=== PATIENT | male | born 1940 | race Two or more races ===

== ENCOUNTER 2020-03-18 12:26 | Emergency (ER) | payer OTHER, MEDICAID, SELFPAY ==
--- NOTE | 2020-03-18 12:38 | ED.RECABL ---
HPI - Recheck/Abnormal Lab/Rx General Chief Complaint: Recheck/Abnormal Lab/Rx Stated Complaint: ABNORMAL LABS Time Seen by Provider: 03/18/20 12:37 Source: patient and EMS Mode of arrival: EMS Limitations: other (poor historian) History of Present Illness MD complaint: abnormal lab (?dehydration) Initial visit (ago): day(s) (called by PCP today states this week he hasn't been feeling well) Initial visit for: other (lab check) Returns today for: called because of abnormal lab/test Description of abnormal result: patient doesn't know Symptoms since prior visit: no new symptoms Context: called for abnormal lab result Associated symptoms: other (states he feels shaky admits to not drinking for a few days, had 3 episodes of non bloody diarrhea this week) Related Data Home Medications Medication Instructions Recorded Confirmed Artificial Tears 03/18/20 Basaglar KwikPen U-100 Insulin 03/18/20 Potassium Phosphates 03/18/20 Senna Plus 03/18/20 Vitamin D3 03/18/20 03/18/20 amlodipine 03/18/20 atorvastatin 03/18/20 folic acid 03/18/20 furosemide 03/18/20 gabapentin 03/18/20 magnesium oxide 03/18/20 multivitamin 03/18/20 terazosin 03/18/20 tramadol 03/18/20 Previous Rx's Medication Instructions Recorded magnesium oxide 400 mg PO DAILY 10 Days #10 tab 03/18/20 Allergies Allergy/AdvReac Type Severity Reaction Status Date / Time No Known Allergies Allergy Mild NONE Unverified 12/27/19 15:54 Review of Systems Review of Systems: Constitutional : No Weight loss, No Fever, No Chills, No Fatigue, No Malaise, feels shaky ENT/Mouth : No sore throat, No Rhinorrhea Eyes: No Eye Pain, No Swelling, No Redness Cardiovascular : No Chest Pain, No SOB, No Dyspnea on Exertion, No Orthopnea, No Edema, No Palpitations Respiratory : No Cough, No Sputum, No Wheezing Gastrointestinal : No Nausea, No Vomiting, pos Diarrhea, No Constipation, No abdominal Pain, No Hematochezia, No Melena Genitourinary : No Dysuria, No Urinary Frequency, No Hematuria, Musculoskeletal : No joint pain, No Myalgias, No Joint Swelling Skin : No Skin Lesions, No rash Neuro : No Weakness, No Numbness, No Dizziness, No Headache Psych : pos Anxiety/Panic, No Depression All other systems reviewed and are negative [facility] Past Medical History Attestation statement: The following information was validated with the patient. Medical History BPH associated with nocturia CHF (congestive heart failure) CKD (chronic kidney disease) COPD (chronic obstructive pulmonary disease) Dementia Diabetes mellitus EtOH dependence Hyperlipidemia Hyperparathyroidism Rheumatoid arthritis Social History Social History (Updated 03/18/20 @ 12:58 by Kami Mata DO) Alcohol intake: current Alcohol intake frequency: 3 or more drinks per day Smoking Status: Former smoker Use of substances other than those prescribed or required for medical reasons: No Advance Directives: No Advance Directives Information Provided: No Physical Exam Vital Signs: Vital Signs: Last Vital Signs Temp 98.6 F 03/18/20 12:39 Pulse 70 03/18/20 14:01 Resp 20 03/18/20 14:01 BP 143/62 H 03/18/20 14:01 Pulse Ox 97 03/18/20 14:01 Body Mass Index 29.0 Appearance: Alert. Oriented X3. No acute distress. Anxious Eyes: Pupils equal, round and reactive to light. ENT: Pharynx mildy dry MM Neck: Normal inspection. Neck supple. CVS: Normal heart rate and rhythm. Pulses normal. Respiratory: No respiratory distress. Breath sounds normal. Abdomen: Soft and non-tender. Skin: Skin warm and dry. Normal skin color. Normal skin turgor. Extremities: No lower extremity edema. No calf ttp Neuro: Oriented X 3. No motor deficit. No sensory deficit. Course Course Course Narrative: patient with no complaints has no dehydration, kidney function better than baseline, LFTS support ETOH has no abdominal pain, once Mag repleted will repeat EKG repeat EKG now unchanged from baseline, VS stable feels well to go home MDM - Recheck/Abnormal Lab/Rx MDM Narrative Medical decision making narrative: 80 yo male on lasix and recent stop of ETOH at this time will need labs told he was hydrated, give PO ativan for anxiety, IVF, EKG, has no pain at htis time, abdomen is benign, dispo per results and findings. Lab Data Result diagrams: 03/18/20 13:00 03/18/20 13:00 Labs: Lab Results 03/18/20 03/18/20 03/18/20 Range/Units 13:00 13:00 13:00 WBC 5.0 (4.8-10.8) X10*3/uL RBC 4.51 L (4.60-5.80) X10*6/uL Hgb 13.5 L (14.0-18.0) g/dl Hct 40.6 L (42-52) % MCV 90.0 (80-98) fL MCH 29.9 (27.0-33.0) pg MCHC 33.3 (31.0-36.0) g/dl RDW 14.6 (11.0-16.0) % Plt Count 179 (160-400) X10*3/uL MPV 9.6 (9.4-12.4) fL Immature Gran % (Auto) 0.2 (0.0-0.4) % Neut % (Auto) 55.7 (45-73) % Lymph % (Auto) 30.5 (20-40) % Phelps % (Auto) 11.2 H (2-11) % Eos % (Auto) 1.8 (0-4) % Baso % (Auto) 0.6 (0-2) % Lymph # (Auto) 1.5 (1.2-4.9) X10*3/uL Phelps # (Auto) 0.6 (0.1-1.2) X10*3/uL Eos # (Auto) 0.1 (0.0-0.4) X10*3/uL Baso # (Auto) 0.0 (0.0-0.2) X10*3/uL Abs Immat Gran (auto) 0.01 (0.00-0.03) X10*3/uL Absolute Neuts (auto) 2.8 (2.0-8.3) X10*3/uL Absolute Nucleated RBC 0.040 H (0.0-0.012) X10*3/uL Nucleated RBC % (auto) 0.8 H (0.0-0.2) /100WBC PT 12.6 (10.8-13.0) SEC INR 1.1 (0.9-1.1) APTT 33.9 (24.1-38.0) SEC VBG pH (7.32-7.43) VBG pCO2 mmhg VBG pO2 mmhg VBG HCO3 mmol/L VBG O2 Saturation % VBG Base Excess mmol/L Sodium 134 L (135-145) mmol/L Potassium 3.7 (3.3-5.1) mmol/l Chloride 97 (96-108) mmol/L Carbon Dioxide 28 (22-29) mmol/L Anion Gap 13 (12-20) BUN 12 (9-16) mg/dL Creatinine 1.33 (0.5-1.4) mg/dL Estim Creat Clear Calc 43.7 Estimated GFR 52 Random Glucose 198 H (60-115) mg/dL Calcium 8.5 (8.4-10.2) mg/dL Magnesium 1.3 L* (1.6-2.6) mg/dL Total Bilirubin 1.4 H (0.0-1.0) mg/dL Direct Bilirubin 0.7 H (0.0-0.5) mg/dL AST 129 H (5-37) U/L ALT 81 H (0-40) U/L Alkaline Phosphatase 97 (39-117) U/L Total Protein 6.7 (6.5-8.0) g/dL Albumin 3.3 L (3.5-5.0) g/dL Lipase 80 H (8-78) U/L Ethyl Alcohol mg/dL 03/18/20 03/18/20 Range/Units 13:00 13:17 WBC (4.8-10.8) X10*3/uL RBC (4.60-5.80) X10*6/uL Hgb (14.0-18.0) g/dl Hct (42-52) % MCV (80-98) fL MCH (27.0-33.0) pg MCHC (31.0-36.0) g/dl RDW (11.0-16.0) % Plt Count (160-400) X10*3/uL MPV (9.4-12.4) fL Immature Gran % (Auto) (0.0-0.4) % Neut % (Auto) (45-73) % Lymph % (Auto) (20-40) % Phelps % (Auto) (2-11) % Eos % (Auto) (0-4) % Baso % (Auto) (0-2) % Lymph # (Auto) (1.2-4.9) X10*3/uL Phelps # (Auto) (0.1-1.2) X10*3/uL Eos # (Auto) (0.0-0.4) X10*3/uL Baso # (Auto) (0.0-0.2) X10*3/uL Abs Immat Gran (auto) (0.00-0.03) X10*3/uL Absolute Neuts (auto) (2.0-8.3) X10*3/uL Absolute Nucleated RBC (0.0-0.012) X10*3/uL Nucleated RBC % (auto) (0.0-0.2) /100WBC PT (10.8-13.0) SEC INR (0.9-1.1) APTT (24.1-38.0) SEC VBG pH 7.41 (7.32-7.43) VBG pCO2 43 mmhg VBG pO2 46 mmhg VBG HCO3 27 mmol/L VBG O2 Saturation 78.6 % VBG Base Excess 2.0 mmol/L Sodium (135-145) mmol/L Potassium (3.3-5.1) mmol/l Chloride (96-108) mmol/L Carbon Dioxide (22-29) mmol/L Anion Gap (12-20) BUN (9-16) mg/dL Creatinine (0.5-1.4) mg/dL Estim Creat Clear Calc Estimated GFR Random Glucose (60-115) mg/dL Calcium (8.4-10.2) mg/dL Magnesium (1.6-2.6) mg/dL Total Bilirubin (0.0-1.0) mg/dL Direct Bilirubin (0.0-0.5) mg/dL AST (5-37) U/L ALT (0-40) U/L Alkaline Phosphatase (39-117) U/L Total Protein (6.5-8.0) g/dL Albumin (3.5-5.0) g/dL Lipase (8-78) U/L Ethyl Alcohol < 10 mg/dL ECG Data Attestation: I personally reviewed and interpreted this ECG as follows: ECG interpretation date: 03/18/20 ECG interpretation time: 13:54 Interpretation: Rate: 79 Rhythm: irregular narrow Holland: normal no consistent p waves seen Normal QRS complex. ST T wave : nonspecific no LONNIE qTC: normal prior studies: changed from prior, artifact present The study has been interpreted contemporaneously by me. . Rate: 65 Rhythm: NSR with 2nd degree type 1 AVB Holland: normal Normal P waves. Normal JANETT. Normal QRS complex. ST T wave : no LONNIE qTC: normal prior studies: no acute ischemia The study has been interpreted contemporaneously by me. . Discharge Plan Discharge Clinical Impression: Hypomagnesemia, Abnormal LFTs Patient Disposition: Home, Self-Care Instructions: Hypomagnesemia (ED) Additional Instructions: return to ED for any worsening symptoms or concerns Prescriptions: New magnesium oxide 400 mg magnesium tablet 400 mg PO DAILY 10 Days Qty: 10 RF: 0 No Action Artificial Tears RF: 0 Basaglar KwikPen U-100 Insulin RF: 0 Potassium Phosphates RF: 0 Senna Plus RF: 0 Vitamin D3 RF: 0 amlodipine RF: 0 atorvastatin RF: 0 folic acid RF: 0 furosemide RF: 0 gabapentin RF: 0 magnesium oxide RF: 0 multivitamin RF: 0 terazosin RF: 0 tramadol RF: 0 Referrals: Physician,Unknown [Primary Care Provider] - 2 days (PCP in 2 days)
[2020-03-18 12:39] VITALS: BP 145/84; PULSE 94; RESP 20; TEMP 37; O2SAT 99; BMI 29.0
--- NOTE | 2020-03-18 12:39 | ECG_ITS ---
Test Reason : DIZZY Blood Pressure : / mmHG Vent. Rate : 079 BPM Atrial Rate : 092 BPM P-R Int : 000 ms QRS Dur : 098 ms QT Int : 386 ms P-R-T Axes : 000 055 017 degrees QTc Int : 442 ms Undetermined rhythm Abnormal ECG When compared with ECG of 07-OCT-2018 18:54, possibly rhythm change Vent. rate has increased BY 37 BPM Referred By: Kami Mata Electronically Signed By:OWEN HARRIS
[2020-03-18] MEDS: LORazepam 1 MG TABLET PO (13:02)
[2020-03-18] MEDS: 0.9 % Sodium Chloride 1,000 ML 999 ML IVCONT (13:02)
[2020-03-18 13:11] LABS: MANUAL DIFF FLAG NO
[2020-03-18 13:18] LABS: Basophils Percent Auto 0.6 % (0-2); Eosinophils Absolute Auto 0.1 X10*3/uL (0.0-0.4); Eosinophils Percent Auto 1.8 % (0-4); Hematocrit 40.6 % (42-52); Hemoglobin 13.5 g/dl (14.0-18.0); INTERNATIONAL NORM RATIO 1.1 (0.9-1.1); Imm Gran Abs Auto 0.01 X10*3/uL (0.00-0.03); Imm Gran Pct Auto 0.2 % (0.0-0.4); Lymphocytes Absolute Auto 1.5 X10*3/uL (1.2-4.9); Lymphocytes Percent Auto 30.5 % (20-40); Mean Corpuscular HGB Conc 33.3 g/dl (31.0-36.0); Mean Corpuscular Hemoglobin 29.9 pg (27.0-33.0); Mean Platelet Volume 9.6 fL (9.4-12.4); Monocytes Absolute Auto 0.6 X10*3/uL (0.1-1.2); Monocytes Percent Auto 11.2 % (2-11); NRBC Pct Auto 0.8 /100WBC (0.0-0.2); Neutrophils Absolute Auto 2.8 X10*3/uL (2.0-8.3); Neutrophils Percent Auto 55.7 % (45-73); Platelet Count 179 X10*3/uL (160-400); Prothrombin Time 12.6 SEC (10.8-13.0); Red Blood Count 4.51 X10*6/uL (4.60-5.80); Red Cell Distribution Width 14.6 % (11.0-16.0)
[2020-03-18 13:21] LABS: Partial Thromboplastin Time 33.9 SEC (24.1-38.0)
[2020-03-18 13:35] LABS: HCO3 VBG 27 mmol/L; Oxygen Saturation VBG 78.6 %; PCO2 VBG 43 mmhg; PO2 VBG 46 mmhg; pH VBG 7.41 (7.32-7.43)
[2020-03-18 13:40] LABS: Ethanol < 10 mg/dL
[2020-03-18 13:52] LABS: Alanine Aminotransferase 81 U/L (0-40); Albumin Level 3.3 g/dL (3.5-5.0); Alkaline Phosphatase 97 U/L (39-117); Anion Gap 13 (12-20); Aspartate Amino Transferase 129 U/L (5-37); Bilirubin Direct 0.7 mg/dL (0.0-0.5); Bilirubin Total 1.4 mg/dL (0.0-1.0); Blood Urea Nitrogen 12 mg/dL (9-16); Calcium 8.5 mg/dL (8.4-10.2); Carbon Dioxide 28 mmol/L (22-29); Chloride 97 mmol/L (96-108); Creatinine Clr Calc Pharmacy 43.7; Estimated Glomerular Filt Rate 52; Glucose Random 198 mg/dL (60-115); Magnesium 1.3 mg/dL (1.6-2.6); Potassium 3.7 mmol/l (3.3-5.1); Sodium 134 mmol/L (135-145); Total Protein 6.7 g/dL (6.5-8.0)
[2020-03-18] MEDS: Magnesium Sulfate/H2O 2 GM/50 ML PIGGYBACK IV (14:00)
[2020-03-18 14:01] VITALS: BP 143/62; PULSE 70; RESP 20; O2SAT 97
[2020-03-18 14:02] LABS: Lipase 80 U/L (8-78)
== END 2020-03-18 16:42 | disposition home or self-care (01) ==
PROVIDERS: Emergency Provider Emergency Medicine
DX: E83.42 Hypomagnesemia (principal); R79.89 Other specified abnormal findings of blood chemistry; Z79.899 Other long term (current) drug therapy; Z87.891 Personal history of nicotine dependence; R94.5 Abnormal results of liver function studies
CPT/HCPCS: 36415; 80048; 80076; 80320; 82803; 83690; 83735; 85025; 85610; 85730; 93005; 96361; 96365; 99284; J3475

== ENCOUNTER 2021-09-14 04:33 | Emergency (ER) | payer OTHER, MEDICAID, SELFPAY ==
[2021-09-14 04:40] VITALS: BP 143/68; PULSE 76; RESP 18; TEMP 36.8; O2SAT 100; BMI 30.4
[2021-09-14 06:09] VITALS: BP 141/72; PULSE 75; RESP 20; O2SAT 100
--- NOTE | 2021-09-14 06:13 | ECG_ITS ---
Test Reason : FALL Blood Pressure : / mmHG Vent. Rate : 085 BPM Atrial Rate : 085 BPM P-R Int : 376 ms QRS Dur : 082 ms QT Int : 376 ms P-R-T Axes : 000 051 038 degrees QTc Int : 447 ms Sinus rhythm with 1st degree A-V block Abnormal ECG When compared with ECG of 18-MAR-2020 13:42, Previous ECG has undetermined rhythm, needs review Referred By: Farnaz Burden Electronically Signed By:OWEN HARRIS
--- NOTE | 2021-09-14 06:19 | ED.FALL ---
HPI - Fall General Chief Complaint: Fall Stated Complaint: FALL Time Seen by Provider: 09/14/21 06:13 History of Present Illness HPI Narrative: Patient is an 81-year-old male presented today with having fallen. Patient claims he tripped fell. Not on blood thinners. No nausea no vomiting no head injury. Denies any new medication. No chest pain or shortness of breath. No abdominal pain. Moving all extremity for EMS. No bloody stool. complaint: fall Related Data Home Medications Medication Instructions Recorded Confirmed Artificial Tears 03/18/20 Basaglar KwikPen U-100 Insulin 03/18/20 Potassium Phosphates 03/18/20 Senna Plus 03/18/20 Vitamin D3 03/18/20 03/18/20 amlodipine 03/18/20 atorvastatin 03/18/20 folic acid 03/18/20 furosemide 03/18/20 gabapentin 03/18/20 magnesium oxide 03/18/20 multivitamin 03/18/20 terazosin 03/18/20 tramadol 03/18/20 Previous Rx's Medication Instructions Recorded magnesium oxide 400 mg PO DAILY 10 Days #10 tab 03/18/20 Allergies Allergy/AdvReac Type Severity Reaction Status Date / Time No Known Allergies Allergy Mild NONE Unverified 12/27/19 15:54 Review of Systems Review of Systems: No fever no chills no cough no congestion No chest pain or diaphoresis Yes all other systems are reviewed and are negative [facility] Past Medical History Attestation statement: The following information was validated with the patient. Medical History BPH associated with nocturia CHF (congestive heart failure) CKD (chronic kidney disease) COPD (chronic obstructive pulmonary disease) Dementia Diabetes mellitus EtOH dependence Hyperlipidemia Hyperparathyroidism Rheumatoid arthritis Social History Social History Alcohol intake: current Alcohol intake frequency: 3 or more drinks per day Advance Directives: Yes Advance Directives Information Provided: Yes Advance Directives on File: Yes Advance Directives Date on File: 03/18/20 Physical Exam Vital Signs: Vital Signs: Last Vital Signs Temp 98.2 F 09/14/21 04:40 Pulse 87 09/14/21 06:35 Resp 20 09/14/21 06:09 BP 156/66 H 09/14/21 06:35 Pulse Ox 100 09/14/21 06:09 BMI result Body Mass Index 30.4 Appearance: Alert. Oriented X3. No acute distress no head injury noted. No hematoma noted. Eyes: Pupils equal, round and reactive to light. ENT: Pharynx normal. Neck: Normal inspection. Neck supple. No lymph nodes noted. No crepitus. No posterior C-spine tenderness elicited. CVS: Normal heart rate and rhythm. Pulses normal. Normal S1 and S2. Respiratory: No respiratory distress. Breath sounds normal. No Wheezing. No rales.No clavicular tenderness no chest wall tenderness. No crepitus. Abdomen: Soft and nontender. No rigidity. No distention. good BS x4 Skin: Skin warm and dry. Normal skin color. Normal skin turgor. Extremities: No lower extremity edema. Neurovascular intact to all extremities. No Lacerations. No Rash Neuro: Oriented X 3. No motor deficit. No sensory deficit. Moving all extermities. No slurred speech MDM - Fall MDM Narrative Medical decision making narrative: Patient's EKG showed a sinus pattern heart rate is 85 GA is prolonged. Patient has first-degree AV block. QRS QT within normal limits is no acute ST segment elevation. Patient is not orthostatic. Labs are pending. Ambulated well in the emergency department. Will discharge patient home if electrolytes are normal Medical Records Attestation: I reviewed the patient's medical records. Lab Data Attestation: I reviewed the patient's lab results. Discharge Plan Discharge Clinical Impression: Fall Patient Disposition: Still a Patient Instructions: Fall Prevention for Older Adults (ED), Head Injury (ED) Prescriptions: No Action Artificial Tears 0RF Basaglar KwikPen U-100 Insulin 0RF Potassium Phosphates 0RF Senna Plus 0RF Vitamin D3 0RF amlodipine 0RF atorvastatin 0RF folic acid 0RF furosemide 0RF gabapentin 0RF magnesium oxide 0RF multivitamin 0RF terazosin 0RF tramadol 0RF magnesium oxide 400 mg magnesium tablet 400 mg PO DAILY 10 Days Qty: 10 0RF Referrals: Physician,Unknown J [Primary Care Provider] - (Follow-up with your doctor on an outpatient basis)
[2021-09-14 06:34] VITALS: BP 145/76; PULSE 77
[2021-09-14 06:35] VITALS: BP 149/66; BP 156/66; PULSE 86; PULSE 87
[2021-09-14 06:46] LABS: Glucose, Whole Blood 188 mg/dL (60-115)
[2021-09-14 06:47] LABS: Basophils Absolute Auto 0.1 X10*3/uL (0.0-0.2); Basophils Percent Auto 0.6 % (0-2); Eosinophils Absolute Auto 0.3 X10*3/uL (0.0-0.4); Eosinophils Percent Auto 3.5 % (0-4); Hematocrit 40.1 % (42.0-52.0); Hemoglobin 13.3 g/dl (14.0-18.0); Imm Gran Abs Auto 0.02 X10*3/uL (0.00-0.03); Imm Gran Pct Auto 0.2 % (0.0-0.4); Lymphocytes Percent Auto 20.3 % (20-40); MANUAL DIFF FLAG NO; Mean Corpuscular HGB Conc 33.2 g/dl (31.0-36.0); Mean Corpuscular Hemoglobin 30.3 pg (27.0-33.0); Mean Corpuscular Volume 91.3 fL (80.0-98.0); Mean Platelet Volume 9.4 fL (9.4-12.4); Monocytes Absolute Auto 0.9 X10*3/uL (0.1-1.2); Monocytes Percent Auto 8.7 % (2-11); Neutrophils Absolute Auto 6.5 x10*3/uL (2.0-8.3); Neutrophils Percent Auto 66.7 % (45-73); Platelet Count 356 X10*3/uL (160-400); Red Blood Count 4.39 X10*6/uL (4.60-5.80); Red Cell Distribution Width 13.7 % (11.0-16.0); White Blood Count 9.7 X10*3/uL (4.8-10.8)
[2021-09-14 07:12] VITALS: BP 151/76; PULSE 80; RESP 16; O2SAT 100
[2021-09-14 07:48] LABS: Anion Gap 14 (12-20); Blood Urea Nitrogen 13 mg/dL (9-16); Carbon Dioxide 27 mmol/L (22-29); Chloride 101 mmol/L (96-108); Creatinine Clr Calc Pharmacy 56.7; Estimated Glomerular Filt Rate > 60; Glucose Random 206 mg/dL (60-115); Potassium 4.8 mmol/L (3.3-5.1); Sodium 137 mmol/L (135-145)
== END 2021-09-14 08:46 | disposition home or self-care (01) ==
PROVIDERS: Emergency Medicine Emergency Medical Services; Emergency Provider Student in an Organized Health Care Education/Training Program
DX: Z71.1 Person with feared health complaint in whom no diagnosis is made (principal); Z91.81 History of falling; E11.22 Type 2 diabetes mellitus with diabetic chronic kidney disease; I13.0 Hypertensive heart and chronic kidney disease with heart failure and stage 1 through stage 4 chronic kidney disease, or unspecified chronic kidney disease; N18.9 Chronic kidney disease, unspecified; I50.9 Heart failure, unspecified; E78.5 Hyperlipidemia, unspecified; Z79.02 Long term (current) use of antithrombotics/antiplatelets; Z79.4 Long term (current) use of insulin
CPT/HCPCS: 36415; 80048; 82947; 85025; 93005; 99283; 99284

== ENCOUNTER 2021-09-21 23:52 | Emergency (ER) | payer OTHER, MEDICAID, SELFPAY ==
--- NOTE | ~2021-09-21 | CT_ITS ---
EXAMINATION: CT HEAD WITHOUT CONTRAST CT CERVICAL SPINE WITHOUT CONTRAST CLINICAL INFORMATION: Fall COMPARISON: 09/01/2018 TECHNIQUE: Multidetector CT imaging of the head and cervical spine was performed without the use of intravenous contrast. Multiplanar reformats are reviewed. This CT examination was performed using dose optimization techniques as appropriate, variously including the following: *Automated exposure control *Adjustment of mA and/or kV according to patient size (this includes techniques or standardized protocols for targeted exams where dose is matched to indication/reason for exam; i.e. extremities or head) *Use of iterative reconstruction technique DLP: 1009 mGy-cm. FINDINGS: There is no evidence of acute intracranial hemorrhage or territorial infarction. No abnormal mass effect or midline shift is seen. Alvarez to white matter differentiation is well preserved. No extra-axial fluid collections are identified. Generalized brain parenchymal volume loss. No disproportionate ventriculomegaly. Mild patchy subcortical, periventricular and deep white matter low-attenuation changes similar to prior, statistically related to chronic white matter small vessel ischemic disease. There are couple punctate calcifications in the right frontal cash radiata which may represent mineralizing microangiopathy. Cavernous carotid calcifications. The osseous structures and soft tissues are normal. The mastoid air cells and visualized portions of the paranasal sinuses are well-aerated. Atlantooccipital alignment is maintained. The vertebral bodies and posterior elements align normally. No acute fracture or subluxation. Vertebral body heights are maintained. Endplate osteophytes present throughout the cervical spine with accompanying loss of disc space height at C5-C6 and C6-C7 vertebral arthrosis. Ankylosis of the posterior articular pillars bilaterally at C2-C3. Bulky hypertrophic facet arthropathy within the upper cervical spine. The paraspinal soft tissues are unremarkable. The imaged lung apices are clear CT/CT cervical spine wo con IMPRESSION: No acute intracranial pathology. No cervical spine fracture or malalignment.
--- NOTE | ~2021-09-21 | XR_ITS ---
EXAMINATION: XR CHEST CLINICAL INFORMATION: Technique and weakness status post fall. COMPARISON: 10/07/2018 TECHNIQUE: Frontal view of the chest was obtained. FINDINGS: Normal symmetric lung volumes. No parenchymal consolidation. Stable pleural-parenchymal scarring at the left lung base. No pleural effusion. No pneumothorax. Cardiomediastinal silhouette and pulmonary vascularity are within normal limits. No acute osseous abnormalities. XR/XR chest 1V IMPRESSION: No acute findings.
--- NOTE | 2021-09-22 00:14 | ECG_ITS ---
Test Reason : FALLS Blood Pressure : / mmHG Vent. Rate : 085 BPM Atrial Rate : 000 BPM P-R Int : 000 ms QRS Dur : 084 ms QT Int : 386 ms P-R-T Axes : 000 056 028 degrees QTc Int : 459 ms Accelerated Junctional rhythm with retrograde P waves Abnormal ECG When compared with ECG of 14-SEP-2021 06:18, Junctional rhythm has replaced Sinus rhythm Referred By: Anni Rowe Electronically Signed By:Tai Alas
--- NOTE | 2021-09-22 00:24 | ED_ITS ---
HPI - General Adult General Chief complaint: Fall Stated complaint: MECHANICAL FALL, CHRONIC KNEE PAIN Time Seen by Provider: 09/22/21 00:04 Source: patient and EMS Mode of arrival: EMS History of Present Illness HPI narrative: 81-year-old male with a past medical history of BPH, CHF, CKD, COPD, dementia, diabetes, ETOH dependence, HLD, hyperparathyroid, RA, BIBA complaining of mechanical fall at home [employer]. Patient reports generalized fatigue/weakness and lightheadedness. Denies falling all the way to ground, head trauma, or LOC. De nies other complaints at present, patient is poor historian. Per chart review patient was recently seen in our ED for mechanical fall, and per EMS seen at [facility] for fall. Denies headache, room spinning dizziness, chest pain, shortness of breath, abdominal pain, nausea, vomiting, fever Onset (ago): hour(s) Related Data Home Medications Medication Instructions Recorded Confirmed Artificial Tears 03/18/20 Basaglar KwikPen U-100 Insulin 03/18/20 Potassium Phosphates 03/18/20 Senna Plus 03/18/20 Vitamin D3 03/18/20 03/18/20 amlodipine 03/18/20 atorvastatin 03/18/20 folic acid 03/18/20 furosemide 03/18/20 gabapentin 03/18/20 magnesium oxide 03/18/20 multivitamin 03/18/20 terazosin 03/18/20 tramadol 03/18/20 Previous Rx's Medication Instructions Recorded magnesium oxide 400 mg PO DAILY 10 days #10 tabs 03/18/20 Allergies Allergy/AdvReac Type Severity Reaction Status Date / Time No Known Allergies Allergy Mild NONE Unverified 09/22/21 00:33 Review of Systems Review of Systems: Constitutional: No Fever, No Chills, + Fatigue, No Malaise ENT/Mouth: No Ear Pain, No Nasal Congestion, No sore throat, No Rhinorrhea, No Swallowing Difficulty Eyes: No Eye Pain, No Swelling, No Redness, No Vision Changes Cardiovascular: No Chest Pain, No SOB, No Edema Respiratory: No Cough, No Sputum, No Dyspnea Gastrointestinal: No Nausea, No Vomiting, No Diarrhea, No Constipation, No Abdominal pain Genitourinary: No Dysuria, No Urinary Frequency, No Hematuria, No Urinary Incontinence/retention, No Urgency, No Flank Pain Musculoskeletal: No joint pain, No Myalgias, No Joint Swelling Skin: No Skin Lesions, No rash Neuro: + Weakness, No Numbness, No Paresthesias, No Loss of Consciousness, + lightheaded, No Headache Yes all other systems are reviewed and are negative [facility] Past Medical History Attestation statement: The following information was validated with the patient. Medical History BPH associated with nocturia CHF (congestive heart failure) CKD (chronic kidney disease) COPD (chronic obstructive pulmonary disease) Dementia Diabetes mellitus EtOH dependence Hyperlipidemia Hyperparathyroidism Rheumatoid arthritis Social History Social History Alcohol intake: current Alcohol intake frequency: 3 or more drinks per day Advance Directives: Yes Advance Directives on File: Yes Advance Directives Date on File: 03/18/20 Physical Exam ED Vital Signs: Vital Signs - 24 hr 09/22/21 00:33 09/22/21 03:33 09/22/21 06:28 Temperature 97.2 F 99.1 F Pulse Rate 80 67 96 Respiratory Rate 20 16 16 Blood Pressure 131/63 140/66 H 132/67 Pulse Oximetry 97 97 100 Oxygen Delivery Method Room Air Room Air Room Air BMI result Body Mass Index 29.0 Const General: cooperative and no acute distress Orientation/consciousness: oriented to person and oriented to place [facility] Head: Yes normal to inspection, Yes atraumatic, No Shelton's sign and No raccoon eyes Ears: hearing grossly normal bilaterally General nose exam: Normal external nose present Face and sinus: Yes normal facial exam Throat: Yes posterior oropharynx normal, Yes tonsils normal, Yes uvula midline, No peritonsillar mass and No uvular edema Eyes General: appearance normal, both eyes and all related structures Pupils: Equal, round and reactive pupils present EOM: EOMs intact bilaterally Neck Neck: Yes normal visual inspection, Yes no meningeal signs, Yes supple and No anterior neck swelling Resp Effort & Inspection: normal respiratory effort and no respiratory distress Auscultation: clear to auscultation bilaterally, no rales, no rhonchi and no wheezes Cardio Rate: regular rate Heart sounds: S1 normal heart sound present and S2 normal heart sound present GI Inspection: Yes normal to inspection Palpation (GI): Soft to palpation, nontender, no guarding and not rigid Skin Rashes: no rashes Wounds: no wounds Neuro General: oriented to person, oriented to place, tone normal, moves all extremities, no meningeal signs, no focal motor deficits and CN's II-XI intact bilaterally Cranial nerves: Yes CN's II-XII intact bilaterally, Yes Equal, round and reactive pupils present and Yes Bilaterally intact EOM present Gait exam (Neuro): Other gait observations present (pivioted from stretcher to wheelchair) Motor exam (neuro): 5/5 motor strength present throughout Extrem Other: +1 bilateral pitting edema Course Course Course Narrative: 99--ED care transferred to Dr. Argueta pending labs, imaging, and PT/case management consult Medical Decision Making MDM Narrative Medical decision making narrative: 81-year-old male with a past medical history of BPH, CHF, CKD, COPD, dementia, diabetes, ETOH dependence, HLD, hyperparathyroid, RA, BIBA complaining of mechanical fall at home [employer]. Patient reports generalized fatigue/weakness and lightheadedness. On exam vital signs stable, NAD, A&O x2, no focal neuro deficits, patient is poor historian. Has been evaluated recently for multiple falls. Concern for metabolic/infectious etiologies vs ACS vs viral syndrome vs orthostasis. Lower concern for ICH/hemorrhage without reported fall Plan: EKG, labs, UA, CXR, head/C-spine CT, PT/case management consult Medical Records Medical records reviewed: Yes I reviewed the patient's medical records. Lab Data Lab results reviewed: Yes I reviewed the patient's lab results. Result diagrams: 09/22/21 00:55 09/22/21 01:54 Labs: Lab Results 09/22/21 09/22/21 09/22/21 Range/Units 00:55 00:55 01:08 WBC 10.8 (4.8-10.8) X10*3/uL RBC 4.28 L (4.60-5.80) X10*6/uL Hgb 12.9 L (14.0-18.0) g/dl Hct 39.4 L (42.0-52.0) % MCV 92.1 (80.0-98.0) fL MCH 30.1 (27.0-33.0) pg MCHC 32.7 (31.0-36.0) g/dl RDW 13.3 (11.0-16.0) % Plt Count 326 (160-400) X10*3/uL MPV 9.7 (9.4-12.4) fL Immature Gran % (Auto) 0.3 (0.0-0.4) % Neut % (Auto) 66.5 (45-73) % Lymph % (Auto) 20.3 (20-40) % [place] % (Auto) 9.3 (2-11) % Eos % (Auto) 3.1 (0-4) % Baso % (Auto) 0.5 (0-2) % Lymph # (Auto) 2.2 (1.2-4.9) X10*3/uL [place] # (Auto) 1.0 (0.1-1.2) X10*3/uL Eos # (Auto) 0.3 (0.0-0.4) X10*3/uL Baso # (Auto) 0.1 (0.0-0.2) X10*3/uL Abs Immat Gran (auto) 0.03 (0.00-0.03) X10*3/uL Absolute Neuts (auto) 7.2 (2.0-8.3) x10*3/uL Absolute Nucleated RBC 0.000 (0.0-0.012) X10*3/uL Nucleated RBC % (auto) 0.0 (0.0-0.2) /100WBC Sodium (135-145) mmol/L Potassium (3.3-5.1) mmol/L Chloride (96-108) mmol/L Carbon Dioxide (22-29) mmol/L Anion Gap (12-20) BUN (9-16) mg/dL Creatinine (0.5-1.4) mg/dL Estim Creat Clear Calc Estimated GFR Random Glucose (60-115) mg/dL Calcium (8.4-10.2) mg/dL Magnesium (1.6-2.6) mg/dL Total Bilirubin (0.0-1.0) mg/dL Direct Bilirubin (0.0-0.5) mg/dL AST (5-37) U/L ALT (0-40) U/L Alkaline Phosphatase (39-117) U/L Troponin I High Sens 10.9 (<3.5-35.0) ng/L B-Natriuretic Peptide 247 H (<100) pg/mL Total Protein (6.5-8.0) g/dL Albumin (3.5-5.0) g/dL Urine Color Urine Appearance Urine pH (5.0-8.0) Ur Specific Leopold (1.005-1.025) Urine Protein (NEG-TRACE) MG/DL Urine Glucose (UA) (NEG) MG/DL Urine Ketones (NEG) MG/DL Urine Blood (NEG) Urine Nitrite (NEG) Ur Leukocyte Esterase (NEG) Urine RBC (0) /HPF Urine WBC (0-4) /HPF Urine WBC Clumps Ur Squamous Epith Cells /LPF Ur Renal Epithelial Cell /LPF Urine Bacteria /LPF Ethyl Alcohol mg/dL COVID-19 (PLACIDO) Negative (Negative) COVID-19 Clin Com See Note Influenza Type A (EMIR) (Negative) Influenza Type B (EMIR) (Negative) Influenza A & B Note 09/22/21 09/22/21 09/22/21 Range/Units 01:08 01:54 01:54 WBC (4.8-10.8) X10*3/uL RBC (4.60-5.80) X10*6/uL Hgb (14.0-18.0) g/dl Hct (42.0-52.0) % MCV (80.0-98.0) fL MCH (27.0-33.0) pg MCHC (31.0-36.0) g/dl RDW (11.0-16.0) % Plt Count (160-400) X10*3/uL MPV (9.4-12.4) fL Immature Gran % (Auto) (0.0-0.4) % Neut % (Auto) (45-73) % Lymph % (Auto) (20-40) % Richmond % (Auto) (2-11) % Eos % (Auto) (0-4) % Baso % (Auto) (0-2) % Lymph # (Auto) (1.2-4.9) X10*3/uL [place] # (Auto) (0.1-1.2) X10*3/uL Eos # (Auto) (0.0-0.4) X10*3/uL Baso # (Auto) (0.0-0.2) X10*3/uL Abs Immat Gran (auto) (0.00-0.03) X10*3/uL Absolute Neuts (auto) (2.0-8.3) x10*3/uL Absolute Nucleated RBC (0.0-0.012) X10*3/uL Nucleated RBC % (auto) (0.0-0.2) /100WBC Sodium 136 (135-145) mmol/L Potassium 4.4 (3.3-5.1) mmol/L Chloride 101 (96-108) mmol/L Carbon Dioxide 22 (22-29) mmol/L Anion Gap 17 (12-20) BUN 13 (9-16) mg/dL Creatinine 1.23 (0.5-1.4) mg/dL Estim Creat Clear Calc 46.4 Estimated GFR 56 Random Glucose 172 H (60-115) mg/dL Calcium 8.6 (8.4-10.2) mg/dL Magnesium 1.5 L (1.6-2.6) mg/dL Total Bilirubin 0.6 (0.0-1.0) mg/dL Direct Bilirubin 0.3 (0.0-0.5) mg/dL AST 30 D (5-37) U/L ALT 24 (0-40) U/L Alkaline Phosphatase 85 (39-117) U/L Troponin I High Sens (<3.5-35.0) ng/L B-Natriuretic Peptide (<100) pg/mL Total Protein 7.7 (6.5-8.0) g/dL Albumin 3.4 L (3.5-5.0) g/dL Urine Color Urine Appearance Urine pH (5.0-8.0) Ur Specific Leopold (1.005-1.025) Urine Protein (NEG-TRACE) MG/DL Urine Glucose (UA) (NEG) MG/DL Urine Ketones (NEG) MG/DL Urine Blood (NEG) Urine Nitrite (NEG) Ur Leukocyte Esterase (NEG) Urine RBC (0) /HPF Urine WBC (0-4) /HPF Urine WBC Clumps Ur Squamous Epith Cells /LPF Ur Renal Epithelial Cell /LPF Urine Bacteria /LPF Ethyl Alcohol 61 mg/dL COVID-19 (PLACIDO) (Negative) COVID-19 Clin Com Influenza Type A (EMIR) Negative (Negative) Influenza Type B (EMIR) Negative (Negative) Influenza A & B Note See Note 09/22/21 Range/Units 02:07 WBC (4.8-10.8) X10*3/uL RBC (4.60-5.80) X10*6/uL Hgb (14.0-18.0) g/dl Hct (42.0-52.0) % MCV (80.0-98.0) fL MCH (27.0-33.0) pg MCHC (31.0-36.0) g/dl RDW (11.0-16.0) % Plt Count (160-400) X10*3/uL MPV (9.4-12.4) fL Immature Gran % (Auto) (0.0-0.4) % Neut % (Auto) (45-73) % Lymph % (Auto) (20-40) % Richmond % (Auto) (2-11) % Eos % (Auto) (0-4) % Baso % (Auto) (0-2) % Lymph # (Auto) (1.2-4.9) X10*3/uL [place] # (Auto) (0.1-1.2) X10*3/uL Eos # (Auto) (0.0-0.4) X10*3/uL Baso # (Auto) (0.0-0.2) X10*3/uL Abs Immat Gran (auto) (0.00-0.03) X10*3/uL Absolute Neuts (auto) (2.0-8.3) x10*3/uL Absolute Nucleated RBC (0.0-0.012) X10*3/uL Nucleated RBC % (auto) (0.0-0.2) /100WBC Sodium (135-145) mmol/L Potassium (3.3-5.1) mmol/L Chloride (96-108) mmol/L Carbon Dioxide (22-29) mmol/L Anion Gap (12-20) BUN (9-16) mg/dL Creatinine (0.5-1.4) mg/dL Estim Creat Clear Calc Estimated GFR Random Glucose (60-115) mg/dL Calcium (8.4-10.2) mg/dL Magnesium (1.6-2.6) mg/dL Total Bilirubin (0.0-1.0) mg/dL Direct Bilirubin (0.0-0.5) mg/dL AST (5-37) U/L ALT (0-40) U/L Alkaline Phosphatase (39-117) U/L Troponin I High Sens (<3.5-35.0) ng/L B-Natriuretic Peptide (<100) pg/mL Total Protein (6.5-8.0) g/dL Albumin (3.5-5.0) g/dL Urine Color DK YELLOW Urine Appearance HAZY Urine pH 5.5 (5.0-8.0) Ur Specific Leopold 1.025 (1.005-1.025) Urine Protein TRACE (NEG-TRACE) MG/DL Urine Glucose (UA) NEG (NEG) MG/DL Urine Ketones NEG (NEG) MG/DL Urine Blood NEG (NEG) Urine Nitrite NEG (NEG) Ur Leukocyte Esterase TRACE H (NEG) Urine RBC 0 (0) /HPF Urine WBC 10-14 H (0-4) /HPF Urine WBC Clumps NOTED Ur Squamous Epith Cells 1+ /LPF Ur Renal Epithelial Cell 1+ /LPF Urine Bacteria 4+ /LPF Ethyl Alcohol mg/dL COVID-19 (PLACIDO) (Negative) COVID-19 Clin Com Influenza Type A (EMIR) (Negative) Influenza Type B (EMIR) (Negative) Influenza A & B Note Discharge Plan Discharge Clinical Impression: Weakness, Falls Patient Disposition: Home, Self-Care Prescriptions: No Action Artificial Tears Basaglar KwikPen U-100 Insulin Potassium Phosphates Senna Plus Vitamin D3 amlodipine atorvastatin folic acid furosemide gabapentin magnesium oxide multivitamin terazosin tramadol magnesium oxide 400 mg magnesium tablet 400 mg PO DAILY 10 Days Qty: 10 0RF
[2021-09-22 00:33] VITALS: BP 131/63; PULSE 80; RESP 20; TEMP 36.2; O2SAT 97; BMI 29.0
[2021-09-22 01:00] LABS: Basophils Absolute Auto 0.1 X10*3/uL (0.0-0.2); Basophils Percent Auto 0.5 % (0-2); Eosinophils Absolute Auto 0.3 X10*3/uL (0.0-0.4); Eosinophils Percent Auto 3.1 % (0-4); Hematocrit 39.4 % (42.0-52.0); Hemoglobin 12.9 g/dl (14.0-18.0); Imm Gran Abs Auto 0.03 X10*3/uL (0.00-0.03); Imm Gran Pct Auto 0.3 % (0.0-0.4); Lymphocytes Absolute Auto 2.2 X10*3/uL (1.2-4.9); Lymphocytes Percent Auto 20.3 % (20-40); MANUAL DIFF FLAG NO; Mean Corpuscular HGB Conc 32.7 g/dl (31.0-36.0); Mean Corpuscular Hemoglobin 30.1 pg (27.0-33.0); Mean Corpuscular Volume 92.1 fL (80.0-98.0); Mean Platelet Volume 9.7 fL (9.4-12.4); Monocytes Percent Auto 9.3 % (2-11); Neutrophils Absolute Auto 7.2 x10*3/uL (2.0-8.3); Neutrophils Percent Auto 66.5 % (45-73); Platelet Count 326 X10*3/uL (160-400); Red Blood Count 4.28 X10*6/uL (4.60-5.80); Red Cell Distribution Width 13.3 % (11.0-16.0); White Blood Count 10.8 X10*3/uL (4.8-10.8)
[2021-09-22 01:26] LABS: B Type Natriuretic Peptide 247 pg/mL (<100); Troponin-I High Sensitivity 10.9 ng/L (<3.5-35.0)
[2021-09-22 01:29] LABS: COVID-19 Test Negative (Negative); IDNOW Serial# 16C4AD1C; IDNOW Serial# 9DB6401D; Influenza A Negative (Negative); Influenza B2 Negative (Negative)
[2021-09-22 02:15] LABS: Ethanol 61 mg/dL
[2021-09-22 02:19] LABS: Alanine Aminotransferase 24 U/L (0-40); Albumin Level 3.4 g/dL (3.5-5.0); Alkaline Phosphatase 85 U/L (39-117); Anion Gap 17 (12-20); Aspartate Amino Transferase 30 U/L (5-37); Bilirubin Direct 0.3 mg/dL (0.0-0.5); Bilirubin Total 0.6 mg/dL (0.0-1.0); Blood Urea Nitrogen 13 mg/dL (9-16); Calcium 8.6 mg/dL (8.4-10.2); Carbon Dioxide 22 mmol/L (22-29); Chloride 101 mmol/L (96-108); Creatinine Clr Calc Pharmacy 46.4; Estimated Glomerular Filt Rate 56; Glucose Random 172 mg/dL (60-115); Magnesium 1.5 mg/dL (1.6-2.6); Potassium 4.4 mmol/L (3.3-5.1); Sodium 136 mmol/L (135-145); Total Protein 7.7 g/dL (6.5-8.0)
[2021-09-22 02:22] LABS: Appearance Urine HAZY; Color Urine DK YELLOW; Glucose Urine UA NEG (NEG); Leukocyte Esterase Urine TRACE (NEG); Nitrite Urine NEG (NEG); PH 5.5 (5.0-8.0); Specific Gravity - Urine 1.025 (1.005-1.025); Urine Blood NEG (NEG); Urine Ketones NEG (NEG); Urine Protein TRACE MG/DL (NEG-TRACE)
[2021-09-22 02:29] LABS: Bacteria Urine 4+ /LPF; RBC Urine 0 /HPF (0); Renal Epithelial Cells Urine 1+ /LPF; Squamous Epithelial Cell Urine 1+ /LPF; WBC Clumps Urine NOTED
[2021-09-22 03:33] VITALS: BP 140/66; PULSE 67; RESP 16; O2SAT 97
[2021-09-22 06:28] VITALS: BP 132/67; PULSE 96; RESP 16; TEMP 37.3; O2SAT 100
--- NOTE | 2021-09-22 06:52 | PC.NURSE ---
Daughter, Nasrin, updated via phone on patient status.
[2021-09-22] MEDS: Magnesium Oxide 400 MG TABLET 800 MG PO (07:28)
[2021-09-22 07:30] VITALS: BP 132/67; PULSE 96; O2SAT 100
--- NOTE | 2021-09-22 09:41 | PHA.MEDREC ---
Pharmacy Consult ? Medication Reconciliation Pharmacy has completed the medication reconciliation. Patient has medication list from [facility]. Chayo Menjivar, Maria FernandaD
[2021-09-22 11:11] LABS: Glucose, Whole Blood 200 mg/dL (60-115)
[2021-09-22] MEDS: Thiamine HCL 100 MG TABLET PO (11:43)
[2021-09-22] MEDS: Folic Acid 1 MG TABLET PO (11:43)
[2021-09-22] MEDS: amLODIPine Besylate 10 MG TABLET PO (11:43)
[2021-09-22] MEDS: Cholecalciferol (Vitamin D3) 25 MCG TABLET 50 MCG PO (11:43)
[2021-09-22] MEDS: Furosemide 20 MG TABLET PO (11:44)
[2021-09-22] MEDS: Multivitamin TABLET 1 TAB PO (11:44)
[2021-09-22] MEDS: Insulin Glargine,Hum.rec.anlog 100 UNIT/ML 10 ML VIAL 6 UNIT SUBCUT (11:44)
[2021-09-22 11:49] VITALS: BP 148/73; PULSE 76; RESP 16; O2SAT 99
--- NOTE | 2021-09-22 13:44 | MHC.CM.ED ---
Received case management consult overnight. Patient came to the ER after a fall. Physical therapy eval completed. Short term rehab is being recommended. Patient is active with [facility]. Spoke with Vianney at [facility]. PT eval provided. Per [facility] PT department, they feel patient can safely return home. Therapist will be at patient's home this evening to evaluate patient and provide any necessary DME (bed rails for bed). Patient's daughter/HCP, Nasrin notified via telephone at [phone]. Nasrin will be in ER at 230pm to transport patient home. Patient, Obdulia LAWTON and Dr Mata aware. Continue to monitor for d/c needs.
== END 2021-09-22 14:45 | disposition home or self-care (01) ==
PROVIDERS: Physician Assistant; Emergency Provider Internal Medicine; PCP Internal Medicine Rheumatology
DX: N39.0 Urinary tract infection, site not specified (principal); B96.20 Unspecified Escherichia coli [E. coli] as the cause of diseases classified elsewhere; R53.1 Weakness; Z20.822 Contact with and (suspected) exposure to COVID-19; Z91.81 History of falling; E11.22 Type 2 diabetes mellitus with diabetic chronic kidney disease; I13.0 Hypertensive heart and chronic kidney disease with heart failure and stage 1 through stage 4 chronic kidney disease, or unspecified chronic kidney disease; N18.9 Chronic kidney disease, unspecified; I50.9 Heart failure, unspecified
CPT/HCPCS: 36415; 70450; 71045; 72125; 80048; 80076; 81001; 82077; 82947; 83735; 83880; 84484; 85025; 87086; 87088; 87186; 87502; 87635; 93005; 97162; 99284; 99285